=== PATIENT | male | born 1950 ===

== ENCOUNTER 2016-11-13 10:17 | Day surgery (SDC) | payer MEDICARE ==
[2016-11-10 10:14] VITALS: BMI 28.8
[2016-11-13] MEDS ORDERED: Lactated Ringer's 1,000 ML IV ONE (12:25)
[2016-11-13] MEDS ORDERED: Iohexol 240 200 ML IJ ONE (12:25)
[2016-11-13] MEDS: cefTRIAXone IV 1 gm in Dextros 50 ML IVPB ONE ×2 (12:30→12:35)
[2016-11-13] MEDS ORDERED: Midazolam 2 MG/2 ML VIAL ONE (12:34)
[2016-11-13] MEDS ORDERED: Propofol 10 mg/ml Inj (20 ML) ONE ×2 (12:34→13:04)
[2016-11-13] MEDS ORDERED: HYDROmorphone 0.5 mg/0.5 ml ISec IVP PRN (13:13)
[2016-11-13 14:54] VITALS: RESP 16
[2016-11-13 15:42] VITALS: BP 127/75; PULSE 93; TEMP 97.4; O2SAT 100
--- NOTE | 2016-11-14 15:36 | RAD ---
PROCEDURE: Fluoroscopy up to 1 hr. HISTORY: URINARY RETENTION COMPARISON: None TECHNIQUE: Standard protocol for this study/examination. FINDINGS: Submitted images from the current procedure: 2.0 IMPRESSION: Less than 1 hr fluoroscopic time utilized 10
--- NOTE | 2016-11-14 18:59 | RAD ---
HISTORY: BPH AND URINARY RETENTION COMPARISON: No prior. FINDINGS: BOWEL: Normal. No obstruction. No free air. BONES: Normal. OTHER FINDINGS: Indwelling urinary bladder catheter. Findings documented on recent intraoperative fluoroscopic procedure. IMPRESSION: No acute findings related to/accounting for the clinical presentation.
--- NOTE | 2016-11-16 06:58 | OP ---
PROCEDURE DATE: 11/13/2016 Date of Surgery: 11/13/2016 PREOPERATIVE DIAGNOSES: Acute urinary retention, prostatic hypertrophy, elevated PSA. POSTOPERATIVE DIAGNOSES: Large prostatic hypertrophy, large median lobe causing obstruction of the p rostatic urethra. While the patient in lithotomy position, genitalia prepped and draped in sterile fashion. Cystogram done before removing the Navas, which revealed elevation of the base of the bladder, no defect in the bladder itself. After removing the Navas and prepping the area, cystoscopy revealed large bilateral lobe enlargement causing obstruction of the prostatic urethra. The length of the urethra about 4.5 cm with large median lobe, mainly shifting to the left side and coming as obstruct the urethra. That is why the patient had retention. The patient tolerated procedure well. After removing the scope, #18 Navas inserted. The patient has elevated PSA between 29 and 34. At one stage, it was 50. Prost atic biopsy was negative before, so all that, I will talk to the patient to recommend TURP. The saima ent transferred to the recovery room in stable condition. Samir Smith MD cc: 43 TT: 11/15/2016 15:26:07 en 11/16/2016 05:56:51
== END 2016-11-13 15:42 | disposition home or self-care (01) ==
LOC: C.SDS 10:17
PROVIDERS: ATTEND Specialist
DX: N40.1 Benign prostatic hyperplasia with lower urinary tract symptoms (principal); N13.8 Other obstructive and reflux uropathy; R33.8 Other retention of urine
CPT/HCPCS: 36415; 52214; 74000; 76000; 84153; J0696; J7120; Q9966

== ENCOUNTER 2016-11-27 09:36 | Observation (INO) | payer MEDICARE, OTHER ==
[2016-11-10 10:13] VITALS: BMI 28.8
[2016-11-27] MEDS ORDERED: Bupivacaine 0.5% Inj(30mL) ONE (11:36)
[2016-11-27] MEDS ORDERED: Ciprofloxacin 400mg/200ml D5W 0 ML IVPB ONE (11:42)
[2016-11-27] MEDS ORDERED: Midazolam 2 MG/2 ML VIAL ONE ×2 (11:43→11:58)
[2016-11-27] MEDS ORDERED: cefTRIAXone IV 1 gm in Dextros 50 ML IVPB ONE (11:45)
[2016-11-27] MEDS ORDERED: Gentamicin 80 mg in 0.9% NS 100 ML IVPB ONE (11:45)
[2016-11-27] MEDS ORDERED: Lactated Ringer's 1,000 ML IV SCH ×2 (13:45→15:00)
[2016-11-27] MEDS ORDERED: Lactated Ringer's 1,000 ML IV ONE (13:47)
[2016-11-27 14:41] LABS: MEAN CELL VOLUME 73.7 fL (80.0-94.0); RED CELL DISTRIBUTION WIDTH 18.8 % (11.5-14.5); WHITE BLOOD COUNT 8.8 K/uL (4.8-10.8)
[2016-11-27 14:49] LABS: HEMATOCRIT 34.4 % (35.0-51.0); MEAN CORPUSCULAR HEMOGLOBIN 23.1 pg (27.0-31.0); MEAN CORPUSCULAR HGB CONC 31.3 g/dL (33.0-37.0); MEAN PLATELET VOLUME 7.8 fL (7.2-11.7)
[2016-11-27] MEDS ORDERED: DiphenhydrAMINE 50 mg/ml Inj IVP PRN (14:49)
[2016-11-27] MEDS ORDERED: Dexamethasone 4 mg/1 ml IVP PRN (14:49)
[2016-11-27] MEDS ORDERED: HYDROmorphone 0.5 mg/0.5 ml ISec IVP PRN (14:49)
[2016-11-27 15:12] LABS: CHLORIDE 105 mmol/L (98-107)
[2016-11-27 15:13] LABS: POTASSIUM 4.8 mmol/L (3.6-5.2); SODIUM 139 mmol/L (132-148)
[2016-11-27 15:15] LABS: GFR AFRICAN-AMERICAN > 60
[2016-11-27 15:16] LABS: BLOOD UREA NITROGEN 11 mg/dL (9-20); CALCIUM 8.4 mg/dl (8.6-10.4); CARBON DIOXIDE 25 mmol/L (22-30); GLUCOSE,RANDOM 88 mg/dL (75-110)
[2016-11-27] MEDS: Oxycodone/Acetaminophen 5/325 mg Tab PO PRN (20:47)
[2016-11-28] MEDS: Oxycodone/Acetaminophen 5/325 mg Tab PO PRN (03:21)
[2016-11-28] MEDS ORDERED: cefTRIAXone IV 1 gm in Dextros 50 ML IVPB ONE (08:12)
--- NOTE | 2016-11-28 08:29 | OP ---
PROCEDURE DATE: 11/27/2016 ANESTHESIA: Spinal. POSTOPERATIVE DIAGNOSES: Prostatic hypertrophy, retention for over 2 months, elevated PSA. PROCEDURE: Cystoscope and transurethral resection of the prostate. DESCRIPTION OF PROCEDURE: While the patient in lithotomy position and after starting spinal anesthes ia, genitalia prepped and draped in sterile fashion. The patient given 80 mg of gentamicin and 1 gra m of Rocephin. Cystoscopy done and the bladder filled with water. Bladder trabeculated, large mediu m lobe and bilateral lobe enlargement causing obstruction. The length of the prostatic urethra aroun d 5 cm. While the scope in the veru, it is totally the urethra obstructed. The scope removed and ur ethra dilated, 28 resectoscope sheath inserted. The median lobe resected first and that is sent for pathology because the prostatic biopsy I did before did not reveal any adenocarcinoma and his PSA was over 30 deep. Deep groove made at 11 o'clock, another deep groove made at 1 o'clock. All the later al tissue and floor tissue was resected as much as possible. The resection time estimated 1 hour. A fter irrigating all the tissue and controlling bleeding, while the scope in the veru, you can see the bladder neck open and there is no gross obstruction. The median lobe trimmed to the level of the fl oor and all the bleeders controlled well. After removing old tissue, the bladder filled and the scop e removed. Putting pressure on the suprapubic area revealed good stream. A #24 three-way Navas with 30 mL balloon inserted and irrigation was light pink. The patient tolerated procedure well and le sferred to the recovery room in stable condition. Samir Smith MD cc: 43 TT: 11/28/2016 08:28:48 [place]
[2016-11-28 13:21] VITALS: BP 137/74; PULSE 101; RESP 20; TEMP 97.5; O2SAT 98
[2016-11-29] MEDS ORDERED: Pneumococcal 23-Valent Vaccine IM ONE (10:00)
== END 2016-11-28 14:20 | disposition home or self-care (01) ==
LOC: C.SDS 09:36 → C.9S 14:03 → C.6T 16:40
PROVIDERS: ADMIT Specialist; ATTEND Specialist
DX: N40.1 Benign prostatic hyperplasia with lower urinary tract symptoms (principal); R33.8 Other retention of urine; R97.20 Elevated prostate specific antigen [PSA]
CPT/HCPCS: 36415; 52601; 80048; 85027; 86850; 86860; 86870; 86880; 86900; 88305; G0378; J0696; J1580; J7120